=== PATIENT | male | born 1975 | race Caucasian/White ===

== ENCOUNTER 2017-02-28 09:41 | Emergency (ER) | payer OTHER ==
[2017-02-28 11:07] VITALS: BP 122/87
== END 2017-02-28 11:07 | disposition home or self-care (01) ==
LOC: ED 09:41
DX: S46.911A Strain of unspecified muscle, fascia and tendon at shoulder and upper arm level, right arm, initial encounter (principal); X50.0XXA Overexertion from strenuous movement or load, initial encounter; Y93.89 Activity, other specified; Y99.8 Other external cause status; Y92.89 Other specified places as the place of occurrence of the external cause
CPT/HCPCS: J1885